=== PATIENT | female | born 1975 | race Caucasian/White ===

== ENCOUNTER 2017-02-02 11:20 | Emergency (ER) | payer MEDICAID, OTHER ==
[2017-02-02 11:30] VITALS: RESP 18
--- NOTE | 2017-02-02 11:37 | EDPHY ---
HPI/HX/ROS/PE/MDM Narrative: CHIEF COMPLAINT: Abnormal vision HPI: The patient is a 41-year-old female with a history of migraine headaches who complains of sudden onset of visual changes approximately 30 minutes ago while driving home after a yoga class. She denies any injury to her head or neck or abnormal movements during that class. The patient was driving and noticed some difficulty seeing in the center aspect revision. This turn into almost a scintillating area which was bilateral, then found out in an arc like distribution to the left side of her vision. Her symptoms are largely gone at this point. She does not have a headache. She denies neck pain. She denies numbness, weakness, tingling or other complaints to other parts of her bodies. The patient states she did strike the posterior aspect of her head on the refrigerator door yesterday but did not lose consciousness and did not have any symptoms after this. REVIEW OF SYSTEMS: Aside from elements discussed in the HPI, a comprehensive 10-point review of systems was reviewed and is negative. PMH: Includes migraine headaches. History of a negative CT scan of the head 4 years ago for some double vision. SOCIAL HISTORY: Denies alcohol or drug abuse. PHYSICAL EXAM: General:Patient is alert, in no acute distress. ENT:Eyes are normal to inspection. ENT inspection normal. PERRLA. Neck: Normal inspection. Full range of motion. Respiratory:No respiratory distress. Breath sounds normal bilaterally. Cardiovascular: Regular rate and rhythm. Strong peripheral pulses. Normal cap refill. Abdomen:The abdomen is nontender to palpation. There are no peritoneal signs. There are normal bowel sounds. Back: Normal to inspection. No tenderness to palpation. Skin: Normal color. No rash. Warm and dry. Extremities: Normal appearance. Full range of motion. Neuro: Oriented x3. Normal motor function. Normal sensory function. Cranial nerves intact. EOMI. No pronator drift. Normal finger-nose bilaterally. No visual field cuts noted. MDM: This patient presents with signs and symptoms that are consistent with an ocular migraine. She does not appear to have a CVA as her symptoms have now resolved. Her symptoms are isolated only to vision and given description that is consistent with classic ocular migraine, I do not think she requires further imaging. I did offer her CT scan and MRI of the brain, but she declines these tests. Her detailed neurologic exam is normal. She is comfortable with the plan to be discharged home without further treatment but will return immediately if symptoms worsen or change. I have referred her to Neurology for further workup. General Time Seen by Provider: 02/02/17 11:36 Initial Vital Signs: Initial Vital Signs Heart Rate 93 02/02/17 11:29 Respiratory Rate 18 02/02/17 11:29 Blood Pressure 145/11 H 02/02/17 11:29 O2 Sat (%) 95 02/02/17 11:29 O2 Delivery Mode Room Air Allergies/Adverse Reactions: No Known Allergies Allergy (Unverified 02/02/17 11:29) Home Medications: Medication Instructions Recorded None 04/15/09 Departure - Departure Disposition: Home, Routine, Self-Care Clinical Impression: Ocular migraine Condition: Good Instructions: Ocular Migraine (ED) Additional Instructions: Return to the ED immediately for worsening vision, severe headache, vomiting, numbness or weakness of arms or legs, difficulty walking or other concerns. Follow-up with a neurologist within 1-2 weeks for re-evaluation. Referrals: NONE *PRIMARY CARE P,. [Primary Care Provider] - As per Instructions Christopher Sommer MD [Medical Doctor] - As per Instructions
[2017-02-02 14:22] VITALS: BP 128/86; PULSE 74; O2SAT 98
== END 2017-02-02 11:49 | disposition home or self-care (01) ==
LOC: CED 11:20
DX: G43.809 Other migraine, not intractable, without status migrainosus (principal)